=== PATIENT | female | born 1975 | race Caucasian/White ===

== ENCOUNTER 2019-08-02 18:08 | Emergency (ER) | payer OTHER ==
--- OUTSIDE RECORDS SUMMARY | 2019-08-02 18:10 | XMS REPORT | Summary of Care ---
:1975 Author Organization [facility] - [facility] Address [address] [place] [id number] Care Team Providers Name Role Phone Emmanuel Mobley MD Primary Care Provider Reason for Referral (STAT) Status Reason Specialty Diagnoses / Referred By Referred To Procedures Contact Contact New Request Procedures Bud Stephens, UNILATERAL VENOUS MD DUPLEX LOWER [address] [place] [address] EXTREMITY BY [id number] [place] [address] Reason for Visit Reason Comments Rule Out Deep Venous Thrombosis Auth/Cert Status Reason Specialty Diagnoses / Referred By Referred To Procedures Contact Contact Emergency Medicine Diagnoses POSS BLOOD CLOT LT LEG [facility] Emergency Dept [address] [place] [address] Fax: Encounter Details Date Type Department Care Team Description 05/05/2019 Emergency [facility] Bud Stephens, Anterior leg pain, left (Primary Dx); Department Pain of left calf [address] [place] [address] [address] [place] [address] [id number] [place], [place] [id number] Allergies No Known Allergiesdocumented as of this encounter (statuses as of 05/05/2019) Medications Medication Sig Dispensed Refills Start Date End Date Status levothyroxine 50 mcg 200 mcg every 0 02/20/2016 Active tablet morning. liothyronine 5 mcg tablet Take 25 mcg 0 02/20/2016 Active by mouth daily. losartan-hydrochlorothiazi TAKE 1 TABLET 1 6 Active de 100-25 mg per tablet BY MOUTH ONCE DAILY clonazePAM 0.5 mg tablet 0 03/26/2018 Active cyclobenzaprine 5 mg 0 03/26/2018 Active tablet hydroCHLOROthiazide 12.5 0 08/13/2016 Active mg capsule metFORMIN 500 mg tablet 0 06/03/2016 Active metoprolol tartrate 25 mg 0 02/21/2018 Active tablet diclofenac 50 mg tablet Take 1 tablet 45 tablet 0 05/12/2018 Active by mouth 3 (three) times daily as needed for Pain (scale 4-6). PREDNISONE ORAL Take 7.5 mg 0 Ac tive by mouth 2 (two) times daily. predniSONE 20 mg Take 2 14 tablet 0 05/05/2019 05/12/2019 A ctive tabletIndications: tablets by Anterior leg pain, left mouth daily for 7 days. documented as of this encounter (statuses as of 05/05/2019) Active Problems No known active problemsdocumented as of this encounter (statuses as of 05/05/2019) Social History Tobacco Use Types Packs/Day Years Used Date Never Smoker Smokeless Tobacco: Never Used Alcohol Use Drinks/Week oz/Week Comments Yes special occassio ns Sex Assigned at Date Recorded Not on file Job Start Date Occupation Industry Not on file Not on file Not on file Travel History Travel Start Travel End No recent travel history available. documented as of this encounter Last Filed Vital Signs Vital Sign Reading Time Taken Comments Blood Pressure 134/92 05/05/2019 5:00 PM [employer] Pulse 81 05/05/2019 5:00 PM [employer] Temperature 36.8 C (98.2 F) 05/05/2019 4:30 PM [employer] Respiratory Rate 19 05/05/2019 5:00 PM [employer] Oxygen Saturation 94% 05/05/2019 5:00 PM [employer] Inhaled Oxygen Concentration - - Weight 108.9 kg (240 lb) 05/05/2019 3:19 PM [employer] Height 162.6 cm (5' 4") 05/05/2019 3:19 PM [employer] Body Mass Index 41.2 05/05/2019 3:19 PM [employer]ASS[employer] documented in this encounter Discharge Instructions Bud Le MD - 05/05/2019DIAGNOSIS 1. PAIN OF LEFT PROXIMAL LEG NEAR KNEE, WITHOUT FINDINGS OF DEEP VEIN THROMBOSIS. SYMPTOMS AND FINDINGS ARE SUSPICIOUS FOR MUSCULOSKELETAL CAUSE, TENDINITIS / BURSITIS. NO LIFE-THREATENING FINDINGS ON TODAY'S EXAM. PROCEDURES IN THE ER TODAY: NONE MEDICATIONS ADMINISTERED IN THE ER TODAY: NONE YOUR PRESCRIPTIONS AND [id number] MEDICATION RECOMMENDATIONS: RECOMMEND SHORT COURSE OF BURST DOSE PREDNISONE PRESCRIBED. RESUME YOUR DAILY PREDNISONE DOSING AFTER THIS COURSE IS COMPLETE. RECOMMEND TYLENOL 325MG EVERY 4 HOURS NEEDED FOR PAIN. NO DEFINITIVE FINDINGS OF DEEP VEIN THROMBOSIS OF THE LOWER EXTREMITY WHICH WOULD REQUIRE ONGOING DOSING WITH XARELTO. UNLESS THERE IS ANOTHER INDICATION FOR XARELTO THAT YOUR DOCTOR IS CONCERNED ABOUT, WOULD RECOMMEND STOPPING XARELTO. SPECIAL CARE INSTRUCTIONS: SEE ATTACHMENT FOLLOW-UP RECOMMENDATIONS: RECOMMEND FOLLOW-UP WITH YOUR PRIMARY CARE PROVIDER IN A WEEK, ESPECIALLY IF NO IMPROVEMENT IN SYMPTOMS. IF YOU WISH TO FOLLOW-UP WITHIN THE [facility], TRY THESE OPTIONS (CLINIC APPOINTMENTS AVAILABLE ON [id number] BASIS): 1. SCHEDULE AN APPOINTMENT ONLINE AT [email or web address] 2. OR CALL THE [facility] AT OR 3. OR CALL YOUR [facility] PHYSICIAN'S OFFICE DIRECTLY IF YOU ARE ALREADY AN ESTABLISHED [facility] PATIENT. RETURN TO ER FOR WORSENING OF SYMPTOMS. AttachmentsThe following attachments cannot be sent through Care Everywhere. Tendonitis (Latvian)Prednisone tablets (Latvian)documented in this encounter Plan of Treatment Health Maintenance Due Date Last Done Comments DTaP,Tdap,and Td Vaccines (1 02/27/1988 - Tdap) PAP SMEAR 1998 INFLUENZA VACCINE (#1) 2018 Breast Cancer Screening 08/07/2019 08/06/2018, (MAMMOGRAM) 07/24/2017, 06/15/2015 PNEUMOCOCCAL 0-64 YEARS Aged Out No longe r eligible based COMBINED SERIES on patient's age to complete this to [facility] documented as of this encounter Procedures Procedure Name Priority Date/Time Associated Comments Diagnosis UNILATERAL VENOUS STAT 05/05/2019 4:16 DUPLEX LOWER PM [employer]ASSIS DRIVER EXTREMITY BY VASCULAR LAB CBC WITH DIFFERENTIAL STAT 05/05/2019 4:14 Pain of left ca lf Results for this PM [employer]IS [employer]IVER procedure are i n the results section. ACTIVATED PARTIAL STAT 05/05/2019 4:14 Pain of left calf R esults for this THRMPLAS MESHA PM [employer]ASSIS DRIVER procedure are i n the results section. PROTHROMBIN TIME / STAT 05/05/2019 4:14 Pain of left calf Results for this INR PM [employer]ASSIS DRIVER procedure are i n the results section. CBC WITH DIFFERENTIAL Routine 05/05/2019 4:14 Pain of left ca lf Results for this PM [employer]IS DRIVER procedure are i n the results section. BASIC METABOLIC PANEL STAT 05/05/2019 4:14 Pain of left ca lf Results for this (NA, K, CL, CO2, PM [employer]ASSIS DRIVER procedure a re in GLUCOSE, BUN, the results CREATININE, CA) section. NOTICE OF PRIVACY Routine 05/05/2019 3:06 PRACTICES PM CHASSIS DRIVER documented in this encounter Results CBC WITH DIFFERENTIAL (05/05/2019 4:14 PM CHASSIS DRIVER) Pathologist Sig nature WBC 10.36 4.30 - 11.10 [facility] 10*3/L [facility] RBC 5.02 3.93 - 5.25 [facility] 10*6/L [facility] HGB 13.7 11.6 - 15.0 [facility] g/dL [facility] HCT 41.3 35.7 - 45.2 % [facility] MCV 82.3 80.6 - 95.5 fL [facility] MCH 27.3 25.9 - 32.8 pg [facility] MCHC 33.2 31.6 - 35.1 [facility] g/dL [facility] RDW-SD 39.9 39.0 - 49.9 fL [facility] RDW-CV 13.4 12.0 - 15.5 % [facility] PLT 300 166 - 358 [facility] 10*3/L [facility] MPV 9.3 (L) 9.5 - 12.9 fL [facility] NRBC/100 WBC 0.0 0.0 - 10.0 /100 [facility] WBCs [facility] NRBC x10^3 <0.01 10*3/L [facility] GRAN MAT (NEUT) % 69.7 % [facility] IMM GRAN % 1.40 % [facility] LYMPH % 21.5 % [facility] MONO % 6.2 % [facility] EOS % 0.9 % [facility] BASO % 0.3 % [facility] GRAN MAT x10^3(ANC) 7.23 (H) 1.88 - 7.09 [facility] 10*3/uL [facility] IMM GRAN x10^3 0.14 (H) 0.00 - 0.06 [facility] 10*3/uL [facility] LYMPH x10^3 2.23 1.32 - 3.29 [facility] 10*3/uL [facility] MONO x10^3 0.64 0.33 - 0.92 [facility] 10*3/uL H[facility]ITAL [facility] EOS x10^3 0.09 0.03 - 0.39 [facility] 10*3/uL H[facility]ITAL [facility] BASO x10^3 0.03 0.01 - 0.07 [facility] 10*3/uL [facility] Specimen Blood - ARM, RIGHT Performing Organization Address City/[facility]/Zipcode Phone Number [facility] CLIA: [id number], [address] [place] [address] Prothrombin Time (PT) / INR (05/05/2019 4:14 PM CHASSIS DRIVER) PROTIME PATIENT 16.5 (H) 12.0 - 14.7 [facility] Seconds [facility] INR 1.4Comment: Normal [facility] INR <1.1; Warfarin [facility] Therapeutic range LABORATORY 2.0 to 3.0 or 2.5 to 3.5, depending upon the indications. Specimen Blood - ARM, RIGHT Performing Organization Address [facility] Phone Number [facility] CLIA: [id number], [address] [place] [address] aPTT (05/05/2019 4:14 PM CHASSIS DRIVER) Pathologist Sig nature APTT Patient 32 23 - 38 Seconds [facility] Specimen Blood - ARM, RIGHT Narrative Performed At The [facility] patient population mean normal value [facility] for aPTT is 30 seconds. Performing Organization Address City/[facility] Cent[facility]ode Phone Number [facility] CLIA: [id number], [address] [place] [address] Basic Metabolic Panel (NA, K, CL, CO2, GLUCOSE, BUN, CREATININE, CA) (05/05/2019 4:14 PM CHASSIS DRIVER) Pathologist Sig nature NA 139 135 - 145 [facility] mmol/L HOSPITAL LABORATORY K 3.3 (L) 3.5 - 5.0 [facility] mmol/L [facility] CL 103 98 - 108 mmol/L [facility] CO2 TOTAL 27 23 - 31 mmol/L [facility] AGAP 9 2 - 16 [facility] BUN 18 7 - 23 mg/dL [facility] GLUCOSE 119 (H) 70 - 110 mg/dL [facility] CREATININE 0.80 0.50 - 1.04 [facility] mg/dL [facility] CALCIUM 9.5 8.6 - 10.6 [facility] mg/dL [facility] eGFR Calculation 78.7 mL/min/1.73m2 [facility] (Non[facility] LABORATORY [place]) eGFR Calculation 95.3 mL/min/1.73m2 [facility] () [facility] Specimen Blood - ARM, RIGHT Narrative Performed At Association of Glomerular Filtration Rate (GFR) [facility] LAB[facility]AT[facility] and Staging of Kidney Disease* + + +- + | GFR (mL/min/1.73 m2) | With Kidney Damage | Without Kidney Damage + + +- + | >90 | Stage one | Normal + + +- + | 60-89 | Stage two | Decreased GFR + + +- + | 30-59 | Stage three | Stage three + + +- + | 15-29 | Stage four | Stage four + + +- + | <15 (or dialysis) | Stage five | Stage five + + +- + *Each stage assumes the associated GFR level has been in effect for at least three months. Stages 1 to 5, with or without kidney disease, indicate chronic kidney disease. Notes: Determination of stages one and two (with eGFR >59mL/min/1.73 m2) requires estimation of kidney damage for at least three months as defined by structural or functional abnormalities of the kidney, manifested by either: Pathological abnormalities or Markers of kidney damage (including abnormalities in the composition of the blood or urine or abnormalities in imaging tests). Performing Organization Address City/State/Zipcode Phone Number [facility] CLIA: [id number], [address] [place], [place] [address] documented in this encounter Visit Diagnoses Diagnosis Anterior leg pain, left - Primary Pain of left calf documented in this encounter [address] [place], [place] [address] documented as of this encounter
--- OUTSIDE RECORDS SUMMARY | 2019-08-02 18:10 | XMS REPORT ---
:1975 Author Organization [facility] t Address [address] [place] [address] [place] [address] Care Team Providers Name Role Phone Unavailable Unavailable Unavailable Problems This patient has no known problems. Allergies, Adverse Reactions, Alerts This patient has no known allergies or adverse reactions. Medications This patient has no known medications.
--- OUTSIDE RECORDS SUMMARY | 2019-08-02 18:10 | XMS REPORT | Summary of Care ---
:1975 Author Organization [facility] - Health Address [address] [place] [address] Care Team Providers Name Role Phone Emmanuel Mobley MD Primary Care Provider Encounter Details Date Type Department Care Team Description 05/05/2019 Orders Only [facility] Doctor Unassigned, No [address] [facility] [place] [address] [address] [place] [id number] Allergies No Known Allergiesdocumented as of this encounter (statuses as of 05/05/2019) Medications Medication Sig Dispensed Refills Start Date End Date Status levothyroxine 50 mcg tablet 200 mcg every 0 02/20/20 16 Active morning. liothyronine 5 mcg tablet Take 25 mcg 0 02/20/2016 Active by mouth daily. losartan-hydrochlorothiazid TAKE 1 TABLET 1 03/06/20 16 Active e 100-25 mg per tablet BY MOUTH ONCE DAILY clonazePAM 0.5 mg tablet 0 03/26/2018 Active cyclobenzaprine 5 mg tablet 0 03/26/2018 Active hydroCHLOROthiazide 12.5 mg 0 08/13/2016 Active capsule metFORMIN 500 mg tablet 0 06/03/2016 Active metoprolol tartrate 25 mg 0 02/21/2018 Active tablet diclofenac 50 mg tablet Take 1 tablet 45 tablet 0 05/12/2018 Active by mouth 3 (three) times daily as needed for Pain (scale 4-6). documented as of this encounter (statuses as [...] of this encounter Last Filed Vital Signs Not on filedocumented in this encounter Plan of Treatment Health Maintenance Due Date Last Done Comments DTaP,Tdap,and Td Vaccines (1 02/27/1988 - Tdap) PAP SMEAR 1998 INFLUENZA VACCINE (#1) 2018 Breast Cancer Screening 08/07/2019 08/06/2018, (MAMMOGRAM) 07/24/2017, 06/15/2015 PNEUMOCOCCAL 0-64 YEARS Aged Out No longe r eligible based COMBINED SERIES on patient's age to complete this to [facility] documented as of this encounter Procedures Procedure Name Priority Date/Time Associated Diagnosis Comme nts CONSENT/REFUSAL FOR Routine 05/05/2019 3:06 PM [facility] DIAGNOSIS [facility] TREATMENT documented in this encounter Results Not on filedocumented in this encounter Insurance Payer Benefit Plan / Group Subscriber ID Effective Dates Phone Address Type AETNA AETNA [facility] CARE [id number] 2013-Present PPO documented as of this encounter
[2019-08-02] MEDS ORDERED: NA CHLORIDE 0.9% 500 ML ONE (19:03)
[2019-08-02 19:05] LABS: Hematocrit 41.8 % (36.0-45.0); Lymphocytes % 15.6 % (15.3-44.8); MPV 7.1 fL (7.6-11.3); RBC Red Blood Cell Count 4.99 M/uL (3.86-4.86)
[2019-08-02 19:25] LABS: ALT/SGPT 36 U/L (12-78); AST/SGOT 12 U/L (15-37); Albumin 3.2 g/dL (3.4-5.0); Alkaline Phosphatase 40 U/L (45-117); BUN Blood Urea Nitrogen 18 mg/dL (7-18); Bicarbonate 25 mmol/L (21-32); Bilirubin Direct < 0.1 mg/dL (0-0.2); Bilirubin Total 0.3 mg/dL (0.2-1.0); Glucose Level 118 mg/dL (74-106); Lipase 96 U/L (73-393); Potassium 3.7 mmol/L (3.5-5.1); Protein, Total 6.4 g/dL (6.4-8.2); Sodium Level 140 mmol/L (136-145)
--- NOTE | 2019-08-02 19:37 | RAD REPORT ---
EXAM DESCRIPTION: US - Extrem Venous W Compress [place] - 08/02/2019 7:27 pm CLINICAL HISTORY: Pain;Swelling COMPARISON: None. TECHNIQUE: Real-time sonographic evaluation of the bilateral lower extremity common femoral, superfi cial femoral, popliteal and posterior tibial veins was performed. FINDINGS: Normal compressibility, flow augmentation, phasic flow and spontaneous flow are identified in the left and right lower extremity common femoral, superficial femoral, popliteal and posterior t ibial veins. No intraluminal filling defects seen. IMPRESSION: No DVT in either lower extremity.
[2019-08-02 20:40] LABS: Urine Blood TRACE (NEG); Urine Glucose NEGATIVE (NEG); Urine Protein NEGATIVE (NEG); Urine Specific Gravity 1.025 (1.005-1.030)
--- NOTE | 2019-08-02 20:51 | RAD REPORT ---
EXAM DESCRIPTION: CT - Abdomen Pelvis W Contrast - 08/02/2019 7:46 pm CLINICAL HISTORY: FLANK PAIN COMPARISON: No comparisons TECHNIQUE: Biphasic, helical CT imaging of the abdomen and pelvis was performed following 100 ml non -ionic IV contrast. No oral contrast given. All CT scans are performed using dose optimization technique as appropriate and may include automated exposure control or mA/KV adjustment according to patient size. FINDINGS: No suspicious findings in the lung bases. Diffuse fatty infiltration of the liver is present with no focal liver lesion. Severity is mild. No p ortal vein abnormality. Pancreas and spleen show no suspicious findings. Cholecystectomy clips are pr esent with no biliary tree dilatation. Symmetric renal function is seen with no hydronephrosis or suspicious renal mass. No pyelonephritis o r acute parenchymal process. No bladder abnormalities. No adrenal abnormalities. Uterus and ovaries s how no suspicious findings. IUD is in place well positioned. No dilated bowel loops or bowel wall thickening. No evidence for appendicitis. No free air, free flui d or inflammatory stranding. No hernia, mass or bulky lymphadenopathy. No acute bone finding. Advanced degenerative disc disease at L5-S1 posterior endplate spurring and di sc bulge. Left foraminal stenosis is present. No acute vascular finding. IMPRESSION: Contrast enhanced CT abdomen and pelvis showing no acute or emergent finding. Fatty infiltration of the liver. Advanced degenerative disc disease L5-S1 with endplate spurring and left foraminal stenosis.
--- NOTE | 2019-08-02 21:32 | ER ---
Nurse's Notes [facility] Name: Deedee Magdaleno Age: 44 yrs Sex: Female : 1975 Arrival Date: 08/02/2019 Time: 18:11 Bed 18 Private MD: Diagnosis: Low back pain;Dependent edema;Urinary tract infection, site not specified Presentation: 08/01 18:19 Chief complaint: Patient states: High blood pressure, back pain, L leg swelling and L ss arm pain x 3 weeks. Pt was recently diagnosed with a UTI and given Cipro. Coronavirus screen: Patient denies a cough. Patient denies shortness of breath or difficulty breathing. Patient denies measured and/or subjective temperature greater than 100.4F prior to today's visit. Patient denies travel on a cruise ship or to a country the [facility] currently lists as an affected area. Patient denies contact with known and/or suspected case of COVID-19. Ebola Screen: Patient denies exposure to infectious person. Patient denies travel to an Ebola-affected area in the 21 days before illness onset. Initial Sepsis Screen: Does the patient meet any 2 criteria? HR > 90 bpm. Does the patient have a suspected source of infection? No. Patient's initial sepsis screen is negative. Risk Assessment: Do you want to hurt yourself or someone else? Patient reports no desire to harm self or others. Onset of symptoms was June 2019. 18:19 Method Of Arrival: Ambulatory ss 18:19 Acuity: GLENN 2 ss Triage Assessment: 18:27 General: Appears in no apparent distress. Behavior is calm, cooperative, appropriate vc for age. 18:32 Pain: Complains of pain in left leg, left knee, left arm, and has a headache Pain vc currently is 5 out of 10 on a pain scale. Quality of pain is described as aching. 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 - Social history:: Smoking status: Patient denies any tobacco usage or history of. Screenin:27 Abuse screen: Denies threats or abuse. Nutritional screening: No deficits noted. vc Tuberculosis screening: No symptoms or risk factors identified. Fall Risk None identified. Assessment: 19:36 Reassessment: Patient to CT via stretcher. vc 19:36 General: Appears in no apparent distress. uncomfortable, Behavior is calm, cooperative, vc appropriate for age. Pain: Complains of pain in left arm and left leg Pain currently is 5 out of 10 on a pain scale. Quality of pain is described as aching, Pain began 1 day ago. Neuro: Level of Consciousness is awake, alert, obeys commands, Oriented to person, place, time, situation, Appropriate for age. 19:36 Cardiovascular: Reports swelling to left leg Patient's skin is warm and dry. vc Respiratory: Airway is patent Respiratory effort is even, unlabored, Respiratory pattern is regular, symmetrical. GI: No deficits noted. : Reports Taking abx for UTI. EENT: No deficits noted. Derm: Skin is intact, is healthy with good turgor, Skin temperature is warm. Musculoskeletal: Circulation, motion, and sensation intact. Capillary refill < 3 seconds, Range of motion: intact in all extremities, Swelling present in right leg and left leg. 20:30 Reassessment: Patient appears in no apparent distress at this time. Patient and/or vc family updated on plan of care and expected duration. Pain level reassessed. Patient is alert, oriented x 3, equal unlabored respirations, skin warm/dry/pink. Patient states symptoms have not improved. 21:20 Reassessment: Patient appears in no apparent distress at this time. Patient and/or vc family updated on plan of care and expected duration. Pain level reassessed. Patient is alert, oriented x 3, equal unlabored respirations, skin warm/dry/pink. Patient states feeling better. Patient states symptoms have improved. 22:20 Reassessment: Patient appears in no apparent distress at this time. Patient and/or vc family updated on plan of care and expected duration. Pain level reassessed. Patient is alert, oriented x 3, equal unlabored respirations, skin warm/dry/pink. Patient states feeling better. Patient states symptoms have improved. Vital Signs: 18:19 BP 174 / 109; Pulse 95; Resp 18; Temp 98.1(TE); Pulse Ox 95% on R/A; Weight 117.93 kg; ss Height 5 ft. 4 in. (162.56 cm); 18:58 BP 140 / 87; Pulse 89; Resp 18; Pulse Ox 96% on R/A; vc 20:00 BP 134 / 77; Pulse 81; Resp 17; Pulse Ox 94% on R/A; vc 21:17 BP 137 / 78; Pulse 74; Resp 17; Pulse Ox 95% on R/A; vc 18:19 Body Mass Index 44.63 (117.93 kg, 162.56 cm) ED Course: 18:11 Patient arrived in ED. mr 18:23 Triage completed. ss 18:25 Arm band placed on right wrist. ss 18:26 Cee Elliott, CHAD is Primary Nurse. vc 18:30 Osvaldo Kumar NP is PHCP. pm1 18:30 Vladislav Bergeron MD is Attending Physician. pm1 18:30 Patient has correct armband on for positive identification. Bed in low position. Side vc rails up X 1. Pulse ox on. NIBP on. 18:46 Radiology exam delayed due to lab results not completed at this time. (BUN/Creatinine). vm2 18:57 Initial lab(s) drawn, by me, sent to lab. Inserted saline lock: 20 gauge in right jp3 antecubital area, using aseptic technique. Blood collected. Patient maintains SpO2 saturation greater than 95% on room air. 19:00 Warm blanket given. Verbal reassurance given. jp3 19:27 Extrem Venous W Compression [place] US In Process Unspecified. EDMS 19:46 CT Abd/Pelvis - IV Contrast Only In Process Unspecified. EDMS 23:45 No provider procedures requiring assistance completed. IV discontinued, intact, vc bleeding controlled, No redness/swelling at site. Pressure dressing applied. Administered Medications: 19:00 Drug: NS 0.9% 500 ml Route: IV; Rate: bolus; Site: right antecubital; vc Outcome: 21:31 Discharge ordered by . pm1 22:25 Patient left the ED. vc 22:25 Discharged to home ambulatory. vc 22:25 Condition: improved 22:25 Discharge instructions given to patient, Instructed on discharge instructions, follow up and referral plans. no drinking with medication, no driving heavy equipment, medication usage, Demonstrated understanding of instructions, follow-up care, medications, Prescriptions given X 1. Signatures: Dispatcher [employer] EDNV Contreras Sowmya britt Jaclyn Andrews RN RN Osvaldo Kumar NP HAUL DRIVER pm1 Pat Foreman vm2 Michael Culp jp3 Cee Elliott, RN RN vc Corrections: (The following items were deleted from the chart) 08/02 00:50 08/01 22:36 Patient left the ED. vc vc
--- NOTE | 2019-08-02 21:32 | EDPHYS ---
Physician Documentation [facility] Name: Deedee Magdaleno Age: 44 yrs Sex: Female : 1975 Arrival Date: 08/02/2019 Time: 18:11 Bed 18 Private MD: ED Physician Vladislav Bergeron HPI: 08/01 18:45 This 44 yrs old Female presents to ER via Ambulatory with complaints of Leg pm1 Swelling, High Blood Pressure, Urinary Problem. 18:45 The patient presents with pain to low back for 1 week. Bilateral lower leg swelling and pm1 elevated blood pressure today. The pain does not radiate. Associated signs and symptoms: Pertinent negatives: abdominal pain, chest pain, dysuria, fever, nausea, numbness, tingling, vomiting, weakness, diarrhea. The patient has been recently seen by a physician: the patient's primary care provider, earlier today, Patient presented to her PCP last for back pain and was diagnosed with UTI. Patient has been taking Cipro. Followed up with her PCP today for bilateral lower extremity swelling and left arm pain. Her blood pressures was also elevated. She was then sent to the ER for further evaluation and treatment. [employer]ER: 18:32 LMP 07/24/2019 vc Historical: - Allergies: 18:25 No Known Allergies; ss - PMHx: 18:25 Addisons; Hypertension; ss - Immunization history:: Adult Immunizations up to date. - Social history:: Smoking status: Patient denies any tobacco usage or history of. ROS: 18:45 Constitutional: Negative for fever, chills, and weight loss, Neck: Negative for injury, pm1 pain, and swelling, Respiratory: Negative for shortness of breath, cough, wheezing, and pleuritic chest pain, Abdomen/GI: Negative for abdominal pain, nausea, vomiting, diarrhea, and constipation. 18:45 : Negative for injury, bleeding, discharge, and swelling, MS/Extremity: Negative for injury and deformity. Left arm and bialteral knee pain Skin: Negative for injury, rash, and discoloration. 18:45 Neuro: Negative for headache, weakness, numbness, tingling, and seizure. 18:45 Cardiovascular: Positive for edema lower bilateral extremities, Negative for chest pain, palpitations. 18:45 Back: Positive for of the low back area, Pain, Negative for pain with movement. 18:45 Neuro: 18:45 Neuro: Negative for headache, numbness, tingling, weakness. Exam: 18:45 Constitutional: This is a well developed, well nourished patient who is awake, alert, pm1 and in no acute distress. Head/Face: Normocephalic, atraumatic. Neck: Trachea midline, no thyromegaly or masses palpated, and no cervical lymphadenopathy. Supple, full range of motion without nuchal rigidity, or vertebral point tenderness. No Meningismus. Chest/axilla: Normal chest wall appearance and motion. Nontender with no deformity. No lesions are appreciated. 18:45 Abdomen/GI: Soft, non-tender, with normal bowel sounds. No distension or tympany. No guarding or rebound. No evidence of tenderness throughout. Back: No spinal tenderness. No costovertebral tenderness. Full range of motion. Skin: Warm, dry with normal turgor. Normal color with no rashes, no lesions, and no evidence of cellulitis. 18:45 Cardiovascular: Exam negative for acute changes, Rate: normal, Rhythm: regular, Pulses: no pulse deficits are appreciated. 18:45 Respiratory: Exam negative for acute changes, respiratory distress, shortness of breath. 18:45 Musculoskeletal/extremity: Exam is negative for acute changes, no swelling noted to bilateral lower extremities. Patient with some mild tenderness to left knee. 18:45 Neuro: Exam negative for acute changes, Orientation: is normal, Mentation: is normal, Motor: is normal, moves all fours, Sensation: is normal, no obvious gross deficits. Vital Signs: 18:19 BP 174 / 109; Pulse 95; Resp 18; Temp 98.1(TE); Pulse Ox 95% on R/A; Weight 117.93 kg; ss Height 5 ft. 4 in. (162.56 cm); 18:58 BP 140 / 87; Pulse 89; Resp 18; Pulse Ox 96% on R/A; vc 20:00 BP 134 / 77; Pulse 81; Resp 17; Pulse Ox 94% on R/A; vc 21:17 BP 137 / 78; Pulse 74; Resp 17; Pulse Ox 95% on R/A; vc 18:19 Body Mass Index 44.63 (117.93 kg, 162.56 cm) MDM: 18:36 Patient medically screened. pm1 20:01 Data reviewed: lab test result(s), Urine culture from [facility] on 07/29/2019. pm1 E. Faecalis - Sensitive to Cipro, Levaquin, nitrofurantoin, vancomycin. 21:30 Data reviewed: vital signs. Data interpreted: Pulse oximetry: on room air is 95 %. pm1 Interpretation: normal. Counseling: I had a detailed discussion with the patient and/or guardian regarding: the historical points, exam findings, and any diagnostic results supporting the discharge/admit diagnosis, lab results, radiology results, the need for outpatient follow up, to return to the emergency department if symptoms worsen or persist or if there are any questions or concerns that arise at home. 08/01 18:44 Order name: Basic Metabolic Panel; Complete Time: 19:26 pm08/01 18:44 Order name: CBC with Diff; Complete Time: 19:12 pm1 08/01 18:44 Order name: Creatinine for Radiology; Complete Time: 19:25 pm08/01 18:44 Order name: Hepatic Function; Complete Time: 19:26 pm08/01 18:44 Order name: Lipase; Complete Time: 19:26 pm08/01 19:58 Order name: Urine Dipstick--Ancillary (enter results); Complete Time: 20:40 mt 08/01 18:44 Order name: Extrem Venous W Compression [place] US; Complete Time: 19:42 pm1 08/01 18:44 Order name: Urine Dipstick-Ancillary (obtain specimen); Complete Time: 19:48 pm1 08/01 18:44 Order name: Urine Test (obtain specimen); Complete Time: 19:48 pm1 08/01 18:44 Order name: IV Saline Lock; Complete Time: 19:00 pm08/01 18:44 Order name: Labs collected and sent; Complete Time: 19:00 pm08/01 18:44 Order name: CT Abd/Pelvis - IV Contrast Only; Complete Time: 21:12 pm08/01 19:58 Order name: Urine --Ancillary (enter results); Complete Time: 20:40 mt Administered Medications: 19:00 Drug: NS 0.9% 500 ml Route: IV; Rate: bolus; Site: right antecubital; vc Disposition: 08/02/19 21:31 Discharged to Home. Impression: Low back pain, Dependent edema, Urinary tract infection, site not specified. - Condition is Stable. - Discharge Instructions: Back Pain, Adult, Urinary Tract Infection, Adult, Peripheral Edema. - Prescriptions for Tylenol- Codeine #3 300-30 mg Oral Tablet - take 2 tablets by ORAL route every 6 hours As needed; 20 tablet. - Medication Reconciliation Form, Thank You Letter, Antibiotic Education, Prescription Opioid Use form. - Follow up: Emergency Department; When: As needed; Reason: Worsening of condition. Follow up: Private Physician; When: 2 - 3 days; Reason: Recheck today's complaints, Continuance of care, Re-evaluation by your physician. - Problem is new. - Symptoms have improved. Signatures: Dispatcher [employer] EDMS Jaclyn Andrews RN RN ss Osvaldo Kumar NP CARDIAC TECHNICIAN pm1 Cee Elliott RN RN vc Corrections: (The following items were deleted from the chart) 22:36 21:31 08/02/2019 21:31 Discharged to Home. Impression: Low back pain; Dependent edema; vc Urinary tract infection, site not specified. Condition is Stable. Forms are Medication Reconciliation Form, Thank You Letter, Antibiotic Education, Prescription Opioid Use. Follow up: Emergency Department; When: As needed; Reason: Worsening of condition. Follow up: Private Physician; When: 2 - 3 days; Reason: Recheck today's complaints, Continuance of care, Re-evaluation by your physician. Problem is new. Symptoms have improved. pm1
[2019-08-02 22:57] VITALS: BP 137/78; O2SAT 95
== END 2019-08-02 22:36 | disposition home or self-care (01) ==
LOC: ER 18:08
DX: N39.0 Urinary tract infection, site not specified (principal); R60.9 Edema, unspecified; I10 Essential (primary) hypertension
CPT/HCPCS: 85025; 80048; 36415; 81025; 80076; 81003; 83690; 74177; 93970; Q9967; J7040; 99284